=== PATIENT | female | born 1950 | race Caucasian/White ===

== ENCOUNTER 2019-01-20 15:44 | Outpatient (CLI) | payer MEDICARE, OTHER ==
--- NOTE | 2019-01-31 16:42 | MMO ---
Bilateral MAMMO Bilat Screen [facility]. CLINICAL HISTORY: Patient is 68 years old and is seen for screening. The patient has the following family history of breast cancer: paternal grandmother and maternal grandmother. The patient has no personal history of cancer. The patient has a history of right Excisional Biopsy at age 24 - benign. VIEWS: The views performed were: bilateral craniocaudal with tomosynthesis and bilateral mediolateral oblique with tomosynthesis. MAMMOGRAM FINDINGS: The breasts are almost entirely fat. There are benign appearing calcifications seen in both breasts. There are no suspicious masses, suspicious calcifications, or new areas of architectural distortion. IMPRESSION: THERE IS NO MAMMOGRAPHIC EVIDENCE OF MALIGNANCY. A ROUTINE FOLLOW-UP MAMMOGRAM IN 1 YEAR IS RECOMMENDED. THE RESULTS OF THIS EXAM WERE SENT TO THE PATIENT. ACR BI-RADS Category 2 - Benign finding MAMMOGRAPHY NOTE: 1. A negative mammogram report should not delay a biopsy if a dominant of clinically suspicious mass is present. 2. Approximately 10% to 15% of breast cancers are not detected by mammography. 3. Adenosis and dense breasts may obscure an underlying neoplasm.
== END 2019-01-20 15:45 | disposition home or self-care (01) ==
LOC: BICMAMMO 15:44
PROVIDERS: ATTEND Family Medicine
DX: Z12.31 Encounter for screening mammogram for malignant neoplasm of breast (principal); Z80.3 Family history of malignant neoplasm of breast
CPT/HCPCS: 77063; 77067

== ENCOUNTER 2019-06-13 13:17 | Outpatient (CLI) | payer MEDICARE, OTHER ==
--- NOTE | 2019-06-15 08:57 | PFT ---
PATIENT HISTORY: HEIGHT: 69 IN WEIGHT: 256 SMOKER: NO HOW LON YRS PACKS PER DAY: 1/2 PRODUCTIVE COUGH: LUNG DISEASE: PHYSICIAN INTERPRETATION PFT data: 06/13/19 [id number] FVC are both mildly decreased and do not correct with Bronchodilatation. The Total lung capacity is slightly decreased. Residual Volume is slightly decreased. DLCO is moderately decreased but corrects for volume. . IMPRESSION: Mild Restrictive Impairment. Gas exchange is decreased, but corrects for reduced volume. [place] Leverman: JOSUE Anthropology Faculty Member: JOSUE ROUSE
== END 2019-06-13 13:18 | disposition home or self-care (01) ==
LOC: CP 13:17
PROVIDERS: ATTEND Internal Medicine Critical Care Medicine
DX: R05 Cough (principal); G47.33 Obstructive sleep apnea (adult) (pediatric); J45.909 Unspecified asthma, uncomplicated
CPT/HCPCS: 94060; 94727; 94729

== ENCOUNTER 2020-01-25 15:52 | Outpatient (CLI) | payer MEDICARE, OTHER ==
--- NOTE | 2020-01-26 09:09 | MMO ---
Bilateral MAMMO Bilat Screen [facility]. CLINICAL HISTORY: Patient is 69 years old and is seen for screening. The patient has the following family history of breast cancer: paternal grandmother and maternal grandmother. The patient has no personal history of cancer. The patient has a history of right Excisional Biopsy at age 24 - benign. VIEWS: The views performed were: bilateral mediolateral oblique with tomosynthesis; bilateral craniocaudal with tomosynthesis; bilateral mediolateral oblique; and left craniocaudal. FILMS COMPARED: The present examination has been compared to prior imaging studies performed at [facility] on 01/20/2019, and at [facility] on 05/20/2014. This study has been interpreted with the assistance of computer-aided detection. MAMMOGRAM FINDINGS: The breasts are almost entirely fat. Benign calcifications are noted bilaterally. There are no suspicious masses, suspicious calcifications, or new areas of architectural distortion. IMPRESSION: THERE IS NO MAMMOGRAPHIC EVIDENCE OF MALIGNANCY. A ROUTINE FOLLOW-UP MAMMOGRAM IN 1 YEAR IS RECOMMENDED. THE RESULTS OF THIS EXAM WERE SENT TO THE PATIENT. ACR BI-RADS Category 2 - Benign finding MAMMOGRAPHY NOTE: 1. A negative mammogram report should not delay a biopsy if a dominant of clinically suspicious mass is present. 2. Approximately 10% to 15% of breast cancers are not detected by mammography. 3. Adenosis and dense breasts may obscure an underlying neoplasm. Reported by: STEWART AHN MD Electonically Signed: [id number]
== END 2020-01-25 15:53 | disposition home or self-care (01) ==
LOC: BICMAMMO 15:52
PROVIDERS: ATTEND Family Medicine
DX: Z12.31 Encounter for screening mammogram for malignant neoplasm of breast (principal); Z80.3 Family history of malignant neoplasm of breast; Z91.89 Other specified personal risk factors, not elsewhere classified
CPT/HCPCS: 77063; 77067

== ENCOUNTER 2020-08-06 15:38 | Outpatient (CLI) | payer MEDICARE, OTHER ==
--- NOTE | 2020-08-06 16:26 | ULT ---
RENAL ULTRASOUND: 08/06/20 INDICATION: Diagnosis code N18.3. FINDINGS: Right kidney measures 12.2 x 6.3 x 5.9 cm. Left kidney measures 12.7 x 6.0 x 5.2 cm. The kidneys are echogenic bilateral renal cortical thinning. No hydronephrosis is evident. Bladder is largely decompr essed. IMPRESSION: 1. Echogenic kidneys with bilateral renal cortical thinning suspicious for chronic medial renal disease. 2. Bladder is largely decompressed. POS: BH
== END 2020-08-06 15:39 | disposition home or self-care (01) ==
LOC: BICULT 15:38
PROVIDERS: ATTEND Internal Medicine Nephrology
DX: N18.30 Chronic kidney disease, stage 3 unspecified (principal); N28.89 Other specified disorders of kidney and ureter
CPT/HCPCS: 76770

== ENCOUNTER 2021-09-03 14:18 | Outpatient (CLI) | payer MEDICARE, OTHER | END 2021-09-03 14:19 | disposition home or self-care (01) | LOC: BICMAMMO 14:18 | PROVIDERS: ATTEND Family Medicine | DX: Z12.31 Encounter for screening mammogram for malignant neoplasm of breast (principal); Z13.820 Encounter for screening for osteoporosis; N95.9 Unspecified menopausal and perimenopausal disorder; M81.0 Age-related osteoporosis without current pathological fracture; Z80.3 Family history of malignant neoplasm of breast; Z91.89 Other specified personal risk factors, not elsewhere classified | CPT/HCPCS: 77063; 77067; 77080 ==

== ENCOUNTER 2022-08-01 15:18 | Emergency (ER) | payer BC, MEDICARE | END 2022-08-01 17:15 | disposition home or self-care (01) | LOC: ERS 15:18 | DX: S80.12XA Contusion of left lower leg, initial encounter (principal); E03.9 Hypothyroidism, unspecified; E11.9 Type 2 diabetes mellitus without complications; Z79.84 Long term (current) use of oral hypoglycemic drugs; K21.9 Gastro-esophageal reflux disease without esophagitis; I10 Essential (primary) hypertension; Z79.899 Other long term (current) drug therapy; W20.8XXA Other cause of strike by thrown, projected or falling object, initial encounter ==